=== PATIENT | male | born 2000 | race African-American/Black ===

== ENCOUNTER 2018-10-11 08:56 | Emergency (ER) | payer MEDICAID ==
[~2018-10-11] VITALS: Ht 182.9 cm; Wt 76.2 kg
[2018-10-11 09:24] VITALS: BP 110/74
[2018-10-11] MEDS ORDERED: KETOROLAC TROMETH 60MG/2ML VIAL IM ONE (09:45)
== END 2018-10-11 10:09 | disposition home or self-care (01) ==
LOC: ER 08:56
DX: K64.8 Other hemorrhoids (principal)
CPT/HCPCS: 96372; 99283; J1885